=== PATIENT | male | born 1960 | race Caucasian/White ===

== ENCOUNTER 2019-06-05 11:03 | Day surgery (SDC) | payer BC ==
[~2019-06-05 11:03] MED LIST: Lactated Ringers 1,000 ML IV SCH; Lidocaine 2% 5 ML SDV ONE; Propofol 200 MG/20 ML SDV ONE
--- NOTE | 2019-06-05 12:05 | PCM.PREANE ---
Preanesthetic Assessment - Anesthesia/Transfusion/Family Hx Anesthesia History: Prior Anesthesia Without Reaction Family History of Anesthesia Reaction: No Transfusion History: No Prior Transfusion(s) - Review of Systems General: No Symptoms, Night Sweats Cardiovascular: No Symptoms Gastrointestinal: No Symptoms Neurological: No Symptoms Other: Reports: None - Physical Assessment NPO Status Date: 06/04/19 NPO Status Time: 21:00 Vital Signs: Last Vital Signs Temp 97.2 F 06/05/19 11:14 Pulse 61 06/05/19 11:14 Resp 16 06/05/19 11:14 BP 147/88 H 06/05/19 11:14 Pulse Ox 96 06/05/19 11:14 Height: 6 ft 2 in Weight: 111.13 kg ASA Class: 2 Mental Status: Alert & Oriented x3 Airway Class: Mallampati = 2 Dentition: Reports: Normal Dentition ROM/Head Extension: Full Lungs: Clear to Auscultation, Normal Respiratory Effort Cardiovascular: Regular Rate, Regular Rhythm - Lab Values: Laboratory Last Values INR 1.55 06/05/19 11:40 - Allergies Allergies/Adverse Reactions: Allergies Allergy/AdvReac Type Severity Reaction Status Date / Time amlodipine besylate Allergy Itching Verified 06/02/19 07:06 [From [facility]] atorvastatin Allergy Itching Verified 06/02/19 07:06 - Blood Blood Available: No - Anesthesia Plan Pre-Op Medication Ordered: None - Acknowledgements Anesthesia Type Planned: General Anesthesia Pt an Appropriate Candidate for the Planned Anesthesia: Yes Alternatives and Risks of Anesthesia Discussed w Pt/Guardian: Yes Pt/Guardian Understands and Agrees with Anesthesia Plan: Yes Additional Comments: PMH: leiden factor 5 defic, hx of DVT, on coumadin stopped several days ago , HTN PLAN: tiva PreAnesthesia Questionnaire HEENT History: Reports: Other (See Below) Other HEENT History: wears glasses Cardiovascular History: Reports: Blood Clots/VTE/DVT, High Cholesterol, Hypertension Other Cardiovascular History: hx of Factor 5 Leiden Mutation, hx DVT-left leg Respiratory History: Reports: None Gastrointestinal History: Reports: Colon Polyp Other Gastrointestinal History: occasional reflux Genitourinary History: Reports: None Musculoskeletal History: Reports: Arthritis Neurological History: Reports: Concussion Psychiatric History: Reports: None Endocrine/Metabolic History: Reports: Obesity/BMI 30+ Hematologic History: Reports: Anticoagulation Therapy, Other (See Below) Other Hematologic History: Factor 5 Leiden Mutation Immunologic History: Reports: None Oncologic (Cancer) History: Reports: None Dermatologic History: Reports: None - Past Surgical History Head Surgeries/Procedures: Reports: None HEENT Surgical History: Reports: None Cardiovascular Surgical History: Reports: None Respiratory Surgical History: Reports: None GI Surgical History: Reports: Colonoscopy Male Surgical History: Reports: None Endocrine Surgical History: Reports: None Neurological Surgical History: Reports: Spinal Fusion Musculoskeletal Surgical History: Reports: Shoulder Surgery Other Musculoskeletal Surgeries/Procedures:: hx left shoulder replacement Oncologic Surgical History: Reports: None Dermatological Surgical History: Reports: None - SUBSTANCE USE Smoking Status *Q: Former Smoker Recreational Drug Use History: No - HOME MEDS Home Medications: Home Meds Lisinopril 1 tab PO DAILY 10/13/15 [History] Simvastatin [Zocor] 1 tab PO DAILY 10/13/15 [History] Warfarin [Coumadin] 1 tab PO ASDIRECTED 10/13/15 [History] - CURRENT (IN HOUSE) MEDS Current Meds: Current Medications Lactated Ringer's (Ringers, Lactated) 1,000 mls @ 125 mls/hr IV ASDIRECTED [facility] Last Admin: 06/05/19 11:39 Dose: 125 mls/hr Discontinued Medications Lidocaine (Xylocaine-Mpf 2%) Confirm Administered Dose 5 ml .ROUTE .STK-MED ONE Stop: 06/05/19 10:54 Propofol (Diprivan 20 Ml) Confirm Administered Dose 400 mg .ROUTE .STK-MED ONE Stop: 06/05/19 10:54
[2019-06-05] MEDS ORDERED: Propofol 200 MG/20 ML SDV ONE (12:55)
--- NOTE | 2019-06-05 13:11 | PCM.OPNOTE ---
- General Post-Op/Procedure Note Date of Surgery/Procedure: 06/05/19 Operative Procedure(s): Colonoscopy with cold rectal polypectomy Pre Op Diagnosis: Personal history of colon polyps. Post-Op Diagnosis: Rectal polyp. Anesthesia Technique: MAC (ASA II) Primary Surgeon: Kendell Yun Condition: Good Free Text/Narrative:: DICTATION [id number] CPT CODE 31728
[2019-06-05] MEDS ORDERED: Lactated Ringers 1,000 ML IV SCH (13:15)
[2019-06-05 13:29] VITALS: BP 129/94; PULSE 62
--- NOTE | 2019-06-05 13:37 | PCM48HPAN ---
Post Anesthesia Note - EVALUATION WITHIN 48HRS OF ANESTHETIC Vital Signs in Normal Range: Yes Patient Participated in Evaluation: Yes Respiratory Function Stable: Yes Airway Patent: Yes Cardiovascular Function Stable: Yes Hydration Status Stable: Yes Pain Control Satisfactory: Yes Nausea and Vomiting Control Satisfactory: Yes Mental Status Recovered: Yes Vital Signs: Last Vital Signs Temp 97.7 F 06/05/19 13:25 Pulse 62 06/05/19 13:25 Resp 14 06/05/19 13:25 BP 129/94 H 06/05/19 13:25 Pulse Ox 97 06/05/19 13:25
--- NOTE | 2019-06-05 13:37 | PCM.POSTAN ---
POST ANESTHESIA ASSESSMENT - MENTAL STATUS Mental Status: Alert, Oriented - VITAL SIGNS Vital Signs: Last Vital Signs Temp 97.7 F 06/05/19 13:25 Pulse 62 06/05/19 13:25 Resp 14 06/05/19 13:25 BP 129/94 H 06/05/19 13:25 Pulse Ox 97 06/05/19 13:25 - RESPIRATORY Respiratory Status: Respiratory Rate WNL, Airway Patent, O2 Saturation Stable - CARDIOVASCULAR CV Status: Pulse Rate WNL, Blood Pressure Stable - GASTROINTESTINAL GI Status: No Symptoms - POST OP HYDRATION Hydration Status: Adequate & Stable
--- NOTE | 2019-06-05 14:03 | OR ---
SURGEON: Kendell Yun M.D. DATE OF PROCEDURE: 06/05/2019 OPERATION PERFORMED: Colonoscopy with cold rectal polypectomy. PRIMARY SURGEON: Kendell Yun MD. ANESTHESIA: MAC. ASA CLASSIFICATION: II. PREOPERATIVE DIAGNOSIS: Personal history of colon polyps. POSTOPERATIVE DIAGNOSIS: Rectal polyp. DESCRIPTION OF PROCEDURE: The patient was taken to the endoscopy room, positioned on the endoscopy table in the left lateral decubitus position. Time-out was called for appropriate identification of the patient and procedure. Monitored anesthesia care was provided. The colonoscope was inserted into the rectum and advanced with minimal difficulty to the cecum. The cecum was identified by internal landmarks and external pressure. The colonoscope was retroflexed to visualize the ascending colon from below, then straightened and slowly withdrawn. The cecum, ascending colon, hepatic flexure, transverse colon, splenic flexure, descending colon, and sigmoid colon showed no other tumors, polyps, diverticula, or angiodysplasia. There was no evidence of acute inflammatory bowel disease. The colonoscope was withdrawn to the rectum where a small polyp was encountered. This was removed with the cold biopsy forceps. There was no significant bleeding. The colonoscope was then retroflexed to visualize the anal orifice from above. Again, no tumors or polyps were seen and there were no acute hemorrhoidal changes. The colonoscope was then straightened, the rectum aspirated, and the colonoscope removed. The patient tolerated the procedure well and was taken to recovery room in stable condition. VIMAL / TERESA /[id number]
== END 2019-06-05 13:45 | disposition home or self-care (01) ==
LOC: MW.SDS 11:03
PROVIDERS: ATTEND Surgery
DX: Z12.11 Encounter for screening for malignant neoplasm of colon (principal); K62.1 Rectal polyp; I10 Essential (primary) hypertension; E78.00 Pure hypercholesterolemia, unspecified; D68.2 Hereditary deficiency of other clotting factors; E66.9 Obesity, unspecified; Z88.8 Allergy status to other drugs, medicaments and biological substances; Z79.01 Long term (current) use of anticoagulants; Z79.899 Other long term (current) drug therapy; Z83.71 Family history of colonic polyps; Z86.010 Personal history of colon polyps; Z98.890 Other specified postprocedural states; Z80.0 Family history of malignant neoplasm of digestive organs; Z87.891 Personal history of nicotine dependence; Z68.31 Body mass index [BMI] 31.0-31.9, adult
CPT/HCPCS: 36415; 45380; 85610; J2001; J2704; J7120